=== PATIENT | female | born 1955 | race Caucasian/White ===

== ENCOUNTER → 2020-06-01 | Outpatient (CLI) | payer OTHER | LOC: YCFC.O 12:52 | PROVIDERS: ATTEND Family Medicine | DX: Z20.828 Contact with and (suspected) exposure to other viral communicable diseases (principal) ==

== ENCOUNTER → 2020-06-24 | Outpatient (CLI) | payer OTHER ==
--- NOTE | 2020-06-27 07:56 | RAD ---
EXAM: Knee,Right Complete CLINICAL HISTORY: PAIN IN RIGHT KNEE COMPARISON STUDY: None. TECHNICAL: Standing AP and lateral x-rays of the right knee. [place] images. FINDINGS: Views of the knee demonstrate no acute fracture or dislocation. A calcific density is seen along the anterior joint line. A small joint effusion is present. There are mild degenerative changes of the patellofemoral joint and medial compartment. IMPRESSION: 1. Loose body seen along the anterior joint line. 2. Mild osteoarthritic changes of the medial compartment and patellofemoral joint. 3. Small right knee joint effusion. Electronically signed by: Orville Gibson MD 06/27/2020 7:54 AM [facility]
== END ==
LOC: YCFC.O 11:41
PROVIDERS: ATTEND Nurse Practitioner Family
DX: M70.51 Other bursitis of knee, right knee (principal); I10 Essential (primary) hypertension; M17.11 Unilateral primary osteoarthritis, right knee; M25.461 Effusion, right knee; M23.41 Loose body in knee, right knee